=== PATIENT | female | born 1980 | race Asian ===

== ENCOUNTER 2021-04-14 07:48 | Inpatient (IN) | payer BC ==
--- NOTE | 2021-04-14 08:17 | PCM.LDHP ---
L&D History of Present Illness - General Date of Service: 04/14/21 Admit Problem/Dx: Patient Status Order with Admit Dx/Problem 04/14/21 07:56 Patient Status [ADT] Routine Admission Diagnosis/Problem Admission Diagnosis/Problem 04/14/21 08:13 Evelin is a 40 yo at 39+2 weeks gestation (LARISSA(US) 04/19/2021) that presents to L&D today with C/O leaking of clear fluid since 0500 this am and increasing intermittent uterine cramping. Patient d/t arrive tonight at 0001 for IOL re: AMA. Reports adequate movement. Denies meeta vaginal bleeding at this time. A pos, RI, GBS neg. EFW via Leopolds 8+ lbs. Pertinent medical history includes: AMA, heartburn. NKDA. Medications: PNV, omeprazole. Patient has no other complaints or concerns at this time. Source of Information: Patient History Limitations: Reports: No Limitations - History of Present Illness Location, : Reports: Abdomen Quality: Reports: Sharp Severity: Mild Improves with: Reports: None Worsens with: Reports: None Associated Symptoms: Reports: N - Related Data Allergies/Adverse Reactions: Allergies Allergy/AdvReac Type Severity Reaction Status Date / Time No Known Allergies Allergy Verified 04/14/21 07:54 Home Medications: Home Meds Omeprazole Magnesium [Prilosec Otc] 20 mg PO DAILY 04/14/21 [History] Past Medical History Gastrointestinal History: Reports: Hemorrhoids, Other (See Below) (Heartburn/GERD) 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 General: Reports: No Symptoms HEENT: Reports: No Symptoms Pulmonary: Reports: No Symptoms Cardiovascular: Reports: No Symptoms Gastrointestinal: Reports: No Symptoms Genitourinary: Reports: No Symptoms Musculoskeletal: Reports: No Symptoms Skin: Reports: No Symptoms Psychiatric: Reports: No Symptoms Neurological: Reports: No Symptoms Hematologic/Lymphatic: Reports: No Symptoms Immunologic: Reports: No Symptoms L&D Exam - Exam Exam: See Below - Vital Signs Vital Signs: VSS, afebrile. See flowsheet. Weight: 140 lb - OB Specific Fundal Height In cm: 39 Contraction Duration (sec): 60-90 Contraction Frequency (min): 1-3 Contraction Intensity: Mild to Moderate Movement: Active Heart Tones: Present Heart Tones per Min: 145 Heart Rate (FHR) Variability: Moderate (6-25 bpm) Presentation: Vertex (via SVE) - Espinal Score Espinal Score Cervix Position: Midposition Espinal Score Consistency: Soft Espinal Score Effacement: 51-70% Espinal Score Dilation: 1-2 cm Espinal Score 's Station: -2 Espinal Score Total: 7 - Exam General: Alert, Oriented, Cooperative HEENT: Conjunctiva Clear, Hearing Intact, Mucosa Moist & [place]rot[place]es, PERRLA Neck: Supple, Trachea Midline Lungs: Clear to Auscultation, Normal Respiratory Effort Cardiovascular: Regular Rate, Regular Rhythm GI/Abdominal Exam: Normal Bowel Sounds, Soft, Non-Tender, No Organomegaly, No Distention Rectal Exam: Deferred, Hemorrhoids Genitourinary: Normal external exam, Enlarged uterus, Vaginal discharge (Affirm collected) Back Exam: Normal Inspection, Full Range of Motion Extremities: Normal Inspection, Normal Range of Motion, Non-Tender, No Pedal Edema, Normal Capillary Refill Skin: Warm, Dry, Intact Neurological: Cranial Nerves Intact, Reflexes Equal Bilateral Psychiatric: Alert, Normal Affect, Normal Mood - Problem List (1) Amniotic fluid leaking SNOMED Code(s): 386772138 ICD Code: O42.90 - MAGGIE ROM, 7TH0 BETW RUPT & ONST LABR, UNSP WEEKS OF GEST Status: Acute Priority: High Current Visit: Yes (2) 39 weeks gestation of SNOMED Code(s): 27677226 ICD Code: Z3A.39 - 39 WEEKS GESTATION OF Status: Acute Priority: High Current Visit: Yes Problem List Initiated/Reviewed/Updated: Yes Orders Last 24hrs: Active Orders 24 hr Category Date Time Status Patient Status [ADT] Routine ADT 04/14/21 07:56 Active Non Stress Test [RC] PER UNIT ROUTINE Care 04/14/21 07:56 Active Up ad Brittany [RC] ASDIRECTED Care 04/14/21 07:56 Active Vaginal Exam [RC] Click to Edit Care 04/14/21 07:56 Active Vital Signs [RC] PER UNIT ROUTINE Care 04/14/21 07:56 Active AMNISURE RUPTURE MEMBRAN [BF] Routine Lab 04/14/21 07:56 Ordered Resuscitation Status Routine Resus Stat 04/14/21 07:56 Ordered Assessment/Plan Comment:: SROM confirmed via Amnisure. Admit for observation in anticipation of of term viable . FHR 145, reactive NST not yet achieved. Spontaneous contractions noted. Expectant management, reassess cervical dilation ~1100 am. If no change has been make, may augment if needed. May ambulate and hydrotherapy as desired after reactive NST achieved; repeat NST per orders. May receive epidural if desired between 5+ cm. See new orders. Dr. Everett notified and agreeable with POC.
[2021-04-14] MEDS ORDERED: Misoprostol 200 MCG Tab PO PRN (10:06)
[2021-04-14] MEDS ORDERED: Methylergonovine 0.2 MG/1 ML Amp IM PRN (10:06)
[2021-04-14] MEDS ORDERED: Lidocaine 1% 50 ML MDV INJECT PRN (10:06)
[2021-04-14] MEDS ORDERED: Tranexamic Acid 1,000 MG in Sodium Chloride 0.9% 100 ML IV PRN (10:06)
[2021-04-14] MEDS ORDERED: Water For Irrigation,Sterile 1,000 ML Container IRR PRN (10:06)
[2021-04-14] MEDS ORDERED: Nalbuphine 10 MG/1 ML Vial IVPUSH PRN (10:06)
[2021-04-14] MEDS ORDERED: Butorphanol 1 MG/ML SDV IVPUSH PRN (10:06)
[2021-04-14] MEDS ORDERED: Sodium Chloride 0.9% 10 ML Syringe FLUSH PRN (10:06)
[2021-04-14] MEDS ORDERED: Sodium Chloride 0.9% 10 ML SDV IV PRN (10:06)
[2021-04-14] MEDS ORDERED: Sodium Chloride 0.9% 2.5 ML Syringe FLUSH PRN (10:06)
[2021-04-14] MEDS ORDERED: Carboprost Tromethamine 250 MCG/1 ML Amp IM PRN (10:06)
[2021-04-14] MEDS ORDERED: Oxytocin/0.9 % Sodium Chloride 30 UNIT/500 ML BAG IV SCH ×2 (10:15→13:45)
[2021-04-14] MEDS ORDERED: Misoprostol 25 MCG (1/4 of 100 MCG) Tab VAG PRN ×2 (13:36)
[2021-04-14] MEDS ORDERED: Terbutaline 1 MG/ML SDV SUBCUT PRN (13:36)
[2021-04-14] MEDS: Lactated Ringers 1,000 ML IV SCH ×3 (14:07→20:30)
[2021-04-14] MEDS ORDERED: Ropivacaine HCl/PF 200 ML ONE (15:56)
[2021-04-14] MEDS ORDERED: Bupivacaine 0.25% 30 ML SDV ONE (15:57)
[2021-04-14] MEDS ORDERED: Acetaminophen 500 MG Tab PO ONE (19:48)
[2021-04-14] MEDS ORDERED: Ampicillin 2 GM in Sodium Chloride 0.9% 100 ML IV ONE (19:58)
[2021-04-14] MEDS ORDERED: Ampicillin 2 GM Vial ONE (20:03)
[2021-04-14] MEDS ORDERED: Sodium Chloride 0.9% 100 ML ONE (20:03)
[2021-04-14] MEDS ORDERED: Acetaminophen 500 MG Tab PO PRN (21:01)
[2021-04-14] MEDS ORDERED: oxyCODONE 5 MG Tab PO PRN (21:01)
[2021-04-14] MEDS ORDERED: Lanolin 100% Cream 7 GM Tube TOP PRN (21:01)
[2021-04-14] MEDS ORDERED: Ibuprofen 400 MG Tab PO PRN (21:01)
[2021-04-14] MEDS ORDERED: Bisacodyl 10 MG Supp RECTAL PRN (21:01)
[2021-04-14] MEDS ORDERED: Benzocaine/Menthol 20%-0.5% Spray 78 GM Cannister TOP PRN (21:01)
[2021-04-14] MEDS ORDERED: Witch Hazel Medicated Pads 40/Jar TOP PRN (21:01)
--- NOTE | 2021-04-15 07:20 | OR ---
SURGEON: Willis Everett MD DATE OF PROCEDURE: 04/14/2021 Ms. Waters is a 40-year-old patient. She is para 2-0-0-2. She is admitted for elective induction. She was induced with Cytotec and responded to that very well. She had epidural anesthesia for labor analgesia. The patient continued to progress, and then she became complete-complete, and she started pushing. The patient was noted to have a fever at 101 and tachycardia. She was given Tylenol, and she was given 2 g of ampicillin IV antibiotic. I was consulted for possible vacuum extraction. Upon my arrival, the patient's vital signs were stable. Her heart rate was category I. Pelvic examination revealed the patient was complete-complete, vertex, LOT, and 0 to +1 station. After explaining the vacuum extraction and obtaining consent from the patient, the kiwi vacuum extraction was performed, and with the patient pushing and me pulling, with two pulls, I was able to deliver the head of the fetus. Once the head was delivered, we encounter shoulder dystocia for about 1 minute, but with gentle maneuvering and corkscrew maneuvering, I was able to deliver the fetus without any problem. The ear muff assembler was in attendance. The score and the weight were not available at the time of this dictation. The placenta delivered spontaneous, complete, and intact. Estimated blood loss is 300 to 350. heart rate was category I. There was no episiotomy needed. There was no labial or perineal laceration. IMANI / MARQUITA /[id number]
--- NOTE | 2021-04-15 07:57 | PCM.PNPP ---
- General Info Date of Service: 04/15/21 Admission Dx/Problem (Free Text): Patient Status Order with Admit Dx/Problem 04/14/21 07:56 Patient Status [ADT] Routine Admission Diagnosis/Problem Admission Diagnosis/Problem 04/14/21 08:13 Evelin is a 40 yo at 39+2 weeks gestation (LARISSA(US) 04/19/2021) that presents to L&D today with C/O leaking of clear fluid since 0500 this am and increasing intermittent uterine cramping. Patient d/t arrive tonight at 0001 for IOL re: AMA. Reports adequate movement. Denies meeta vaginal bleeding at this time. A pos, RI, GBS neg. EFW via Leopolds 8+ lbs. Pertinent medical history includes: AMA, heartburn. NKDA. Medications: PNV, omeprazole. Patient has no other complaints or concerns at this time. Subjective Update: Ambulating, voiding, and tolerating diet. Some mild lower abdominal pain reported. No additional concerns/questions at this time. Functional Status: Reports: Pain Controlled, Tolerating Diet, Ambulating, Urinating - Review of Systems General: Reports: No Symptoms HEENT: Reports: No Symptoms Pulmonary: Reports: No Symptoms Cardiovascular: Reports: No Symptoms Gastrointestinal: Reports: No Symptoms Genitourinary: Reports: No Symptoms Musculoskeletal: Reports: No Symptoms Skin: Reports: No Symptoms Neurological: Reports: No Symptoms Psychiatric: Reports: No Symptoms - General Info Date of Service: 04/15/21 - Patient Data Vital Signs - Most Recent: Last Vital Signs Temp 98.8 F 04/15/21 05:00 Pulse 94 04/15/21 05:00 Resp 17 04/15/21 05:00 BP 111/60 04/15/21 05:00 Pulse Ox 96 04/15/21 05:00 Weight - Most Recent: 140 lb Lab Results - Last 24 Hours: Laboratory Results - last 24 hr 04/14/21 04/14/21 04/14/21 Range/Units 07:53 09:40 09:40 WBC 11.39 H (4.0-11.0) K/uL RBC 4.19 L (4.30-5.90) M/uL Hgb 12.6 (12.0-16.0) g/dL Hct 37.0 (36.0-46.0) % MCV 88.3 (80.0-98.0) fL MCH 30.1 (27.0-32.0) pg MCHC 34.1 (31.0-37.0) g/dL RDW Std Deviation 42.4 (28.0-62.0) fl RDW Coeff of Messi 13 (11.0-15.0) % Plt Count 169 (150-400) K/uL MPV 11.50 (7.40-12.00) fL Nucleated RBC % 0.0 /100WBC Nucleated RBCs # 0 K/uL Membrane Rupture POSITIVE SARS-CoV-2 RNA (ANGELIKA) (NEGATIVE) Blood Type A POSITIVE Antibody Screen NEGATIVE 04/14/21 04/15/21 Range/Units 09:45 05:00 WBC (4.0-11.0) K/uL RBC (4.30-5.90) M/uL Hgb 11.2 L (12.0-16.0) g/dL Hct 33.1 L (36.0-46.0) % MCV (80.0-98.0) fL MCH (27.0-32.0) pg MCHC (31.0-37.0) g/dL RDW Std Deviation (28.0-62.0) fl RDW Coeff of Messi (11.0-15.0) % Plt Count (150-400) K/uL MPV (7.40-12.00) fL Nucleated RBC % /100WBC Nucleated RBCs # K/uL Membrane Rupture SARS-CoV-2 RNA (ANGELIKA) NEGATIVE (NEGATIVE) Blood Type Antibody Screen Med Orders - Current: Current Medications Acetaminophen (Acetaminophen 500 Mg Tab) 500 mg PO Q4H PRN PRN Reason: Pain (mild 1-3) Acetaminophen (Acetaminophen 500 Mg Tab) 1,000 mg PO Q4H PRN PRN Reason: Pain (mild 1-3) Benzocaine/Menthol (Benzocaine/Menthol 20%-0.5% [place] 78 Gm Cannister) 78 gm TOP ASDIRECTED PRN PRN Reason: Perineal Comfort Measure Bisacodyl (Bisacodyl 10 Mg Supp) 10 mg RECTAL ONETIME PRN PRN Reason: Constipation Butorphanol Tartrate (Butorphanol 1 Mg/Ml Sdv) 1 mg IVPUSH Q1H PRN PRN Reason: Pain (severe 7-10) Carboprost Tromethamine (Carboprost Tromethamine 250 Mcg/1 Ml Amp) 250 mcg IM ASDIRECTED PRN PRN Reason: Post Hemorrhage Docusate Sodium (Docusate Sodium 100 Mg Cap) 100 mg PO Q12H PRN PRN Reason: Constipation Emollient Ointment (Lanolin 100% Cream 7 Gm Tube) 0 gm TOP ASDIRECTED PRN PRN Reason: Sore Nipples Lactated Ringer's (Ringers, Lactated) 1,000 mls @ 150 mls/hr IV ASDIRECTED SANDEEP Last Admin: 04/14/21 20:30 Dose: 999 mls/hr Documented by: Oxytocin/Sodium Chloride (Oxytocin 30 Unit/500 Ml-Ns) 30 unit in 500 mls @ 500 mls/hr IV TITRATE [facility] Last Infusion: 04/14/21 21:09 Dose: 250 mls/hr Documented by: Tranexamic Acid 1,000 mg/ (Sodium Chloride) 110 mls @ 660 mls/hr IV ONETIME PRN PRN Reason: Bleeding Oxytocin/Sodium Chloride (Oxytocin 30 Unit/500 Ml-Ns) 30 unit in 500 mls @ 2 mls/hr IV TITRATE [facility]; Protocol Last Titration: 04/14/21 20:53 Dose: 0 munits/min, 0 mls/hr Documented by: Ibuprofen (Ibuprofen 400 Mg Tab) 400 mg PO Q4H PRN PRN Reason: Pain (mild 1-3) Ibuprofen (Ibuprofen 800 Mg Tab) 800 mg PO Q6H PRN PRN Reason: Pain (mild 1-3) Lidocaine HCl (Lidocaine 1% 50 Ml Mdv) 50 ml INJECT ONETIME PRN PRN Reason: Laceration repair Methylergonovine Maleate (Methylergonovine 0.2 Mg/1 Ml Amp) 0.2 mg IM ASDIRECTED PRN PRN Reason: Post Hemorrhage Misoprostol (Misoprostol 200 Mcg Tab) 200 mcg PO ONETIME PRN PRN Reason: Post Hemorrhage Nalbuphine HCl (Nalbuphine 10 Mg/1 Ml Vial) 10 mg IVPUSH Q1H PRN PRN Reason: Pain (severe 7-10) Oxycodone HCl (Oxycodone 5 Mg Tab) 5 mg PO Q2H PRN PRN Reason: Pain (severe 7-10) Sodium Chloride (Sodium Chloride 0.9% 10 Ml Syringe) 10 ml FLUSH ASDIRECTED PRN PRN Reason: Keep Vein Open Sodium Chloride (Sodium Chloride 0.9% 2.5 Ml Syringe) 2.5 ml FLUSH ASDIRECTED PRN PRN Reason: Keep Vein Open Sodium Chloride (Sodium Chloride 0.9% 10 Ml Sdv) 10 ml IV ASDIRECTED PRN PRN Reason: IV Use Sterile Water (Water For Irrigation,Sterile 1,000 Ml Container) 1,000 ml IRR ASDIRECTED PRN PRN Reason: delivery Terbutaline Sulfate (Terbutaline 1 Mg/Ml Sdv) 0.25 mg SUBCUT ASDIRECTED PRN PRN Reason: Tacysystole Witch Leatha (Witch Leatha Medicated Pads 40/Jar) 1 pad TOP ASDIRECTED PRN PRN Reason: comfort care Discontinued Medications Acetaminophen (Acetaminophen 500 Mg Tab) 1,000 mg PO ONETIME ONE Stop: 04/14/21 19:49 Last Admin: 04/14/21 20:06 Dose: 1,000 mg Documented by: Ampicillin Sodium (Ampicillin 2 Gm Vial) Confirm Administered Dose 2 gm .ROUTE .STK-MED ONE Stop: 04/14/21 20:04 Last Admin: 04/14/21 20:07 Dose: 2 gm Documented by: Bupivacaine HCl (Bupivacaine 0.25% 30 Ml Sdv) Confirm Administered Dose 30 ml .ROUTE .STK-MED ONE Stop: 04/14/21 15:58 Ropivacaine (Naropin 0.2%) Confirm Administered Dose 200 mls @ as directed .ROUTE .STK-MED ONE Stop: 04/14/21 15:57 Ampicillin Sodium 2 gm/ Sodium (Chloride) 100 mls @ 200 mls/hr IV ONETIME ONE Stop: 04/14/21 20:27 Last Admin: 04/14/21 20:10 Dose: Not Given Documented by: Sodium Chloride (Normal Saline) Confirm Administered Dose 100 mls @ as directed .ROUTE .STK-MED ONE Stop: 04/14/21 20:04 Last Admin: 04/14/21 20:08 Dose: 200 mls/hr Documented by: - Infant Interaction Disposition, : [place] to Nursery Support Person: - Recovery Exam Fundal Tone: Firm Fundal Level: 2 Fingerbreadths Below Umbilicus Fundal Placement: Midline Lochia Amount: Scant Lochia Color: Rubra/Red Perineum Description: Edematous Episiotomy/Laceration: None - Exam General: Alert, Oriented, Cooperative, No Acute Distress Lungs: Normal Respiratory Effort Cardiovascular: Regular Rate, Regular Rhythm GI/Abdominal Exam: Soft, Non-Tender Extremities: Normal Inspection, Normal Range of Motion, Non-Tender, Normal Capillary Refill Skin: Warm, Dry, Intact Neurological: No New Focal Deficit, Normal Speech, Normal Tone, Sensation Intact Psy/Mental Status: Alert, Normal Affect, Normal Mood - Problem List & Annotations (1) Vacuum-assisted vaginal delivery SNOMED Code(s): 82809794436995451 Code(s): Z37.9 - OUTCOME OF DELIVERY, UNSPECIFIED Status: Acute Priority: High Current Visit: Yes - Problem List Review Problem List Initiated/Reviewed/Updated: Yes - Plan Plan:: SROM confirmed via Amnisure. Admit for observation in anticipation of of term viable . FHR 145, reactive NST not yet achieved. Spontaneous contractions noted. Expectant management, reassess cervical dilation ~1100 am. If no change has been make, may augment if needed. May ambulate and hydrotherapy as desired after reactive NST achieved; repeat NST per orders. May receive epidural if desired between 5+ cm. See new orders. Dr. Everett notified and agreeable with POC. PP Day1 A: Ambulating, voiding, and tolerating diet. Some mild lower abdominal pain reported. Otherwise unremarkable. P: Routine plan of care; Dr. Everett updated.
[2021-04-15] MEDS: Ibuprofen 800 MG Tab PO PRN ×3 (08:18→21:48)
[2021-04-15] MEDS: Acetaminophen 500 MG Tab PO PRN ×2 (11:32→21:51)
[2021-04-15] MEDS: Docusate Sodium 100 MG Cap PO PRN (21:48)
[2021-04-16] MEDS: Acetaminophen 500 MG Tab PO PRN (05:57)
[2021-04-16] MEDS: Ibuprofen 800 MG Tab PO PRN ×2 (05:58→20:40)
--- NOTE | 2021-04-16 09:51 | PCM.PNPP ---
- General Info Date of Service: 04/16/21 Functional Status: Reports: Pain Controlled - Review of Systems General: Reports: No Symptoms HEENT: Reports: No Symptoms Pulmonary: Reports: No Symptoms Cardiovascular: Reports: No Symptoms Gastrointestinal: Reports: No Symptoms Genitourinary: Reports: No Symptoms Musculoskeletal: Reports: No Symptoms Skin: Reports: No Symptoms Neurological: Reports: No Symptoms Psychiatric: Reports: No Symptoms - General Info Date of Service: 04/16/21 - Patient Data Vital Signs - Most Recent: Last Vital Signs Temp 36.4 C 04/16/21 08:00 Pulse 67 04/16/21 08:00 Resp 18 04/16/21 08:00 BP 102/64 04/16/21 08:00 Pulse Ox 96 04/16/21 08:00 Weight - Most Recent: 63.503 kg Med Orders - Current: Current Medications Acetaminophen (Acetaminophen 500 Mg Tab) 500 mg PO Q4H PRN PRN Reason: Pain (mild 1-3) Acetaminophen (Acetaminophen 500 Mg Tab) 1,000 mg PO Q4H PRN PRN Reason: Pain (mild 1-3) Last Admin: 04/16/21 05:57 Dose: 1,000 mg Documented by: Benzocaine/Menthol (Benzocaine/Menthol 20%-0.5% [place] 78 Gm Cannister) 78 gm TOP ASDIRECTED PRN PRN Reason: Perineal Comfort Measure Bisacodyl (Bisacodyl 10 Mg Supp) 10 mg RECTAL ONETIME PRN PRN Reason: Constipation Butorphanol Tartrate (Butorphanol 1 Mg/Ml Sdv) 1 mg IVPUSH Q1H PRN PRN Reason: Pain (severe 7-10) Carboprost Tromethamine (Carboprost Tromethamine 250 Mcg/1 Ml Amp) 250 mcg IM ASDIRECTED PRN PRN Reason: Post Hemorrhage Docusate Sodium (Docusate Sodium 100 Mg Cap) 100 mg PO Q12H PRN PRN Reason: Constipation Last Admin: 04/15/21 21:48 Dose: 100 mg Documented by: Emollient Ointment (Lanolin 100% Cream 7 Gm Tube) 0 gm TOP ASDIRECTED PRN PRN Reason: Sore Nipples Lactated Ringer's (Ringers, Lactated) 1,000 mls @ 150 mls/hr IV ASDIRECTED SANDEEP Last Admin: 04/14/21 20:30 Dose: 999 mls/hr Documented by: Oxytocin/Sodium Chloride (Oxytocin 30 Unit/500 Ml-Ns) 30 unit in 500 mls @ 500 mls/hr IV TITRATE SANDEEP Last Infusion: 04/14/21 21:09 Dose: 250 mls/hr Documented by: Tranexamic Acid 1,000 mg/ (Sodium Chloride) 110 mls @ 660 mls/hr IV ONETIME PRN PRN Reason: Bleeding Oxytocin/Sodium Chloride (Oxytocin 30 Unit/500 Ml-Ns) 30 unit in 500 mls @ 2 mls/hr IV TITRATE SANDEEP; Protocol Last Titration: 04/14/21 20:53 Dose: 0 munits/min, 0 mls/hr Documented by: Ibuprofen (Ibuprofen 400 Mg Tab) 400 mg PO Q4H PRN PRN Reason: Pain (mild 1-3) Ibuprofen (Ibuprofen 800 Mg Tab) 800 mg PO Q6H PRN PRN Reason: Pain (mild 1-3) Last Admin: 04/16/21 05:58 Dose: 800 mg Documented by: Lidocaine HCl (Lidocaine 1% 50 Ml Mdv) 50 ml INJECT ONETIME PRN PRN Reason: Laceration repair Methylergonovine Maleate (Methylergonovine 0.2 Mg/1 Ml Amp) 0.2 mg IM ASDIRECTED PRN PRN Reason: Post Hemorrhage Misoprostol (Misoprostol 200 Mcg Tab) 200 mcg PO ONETIME PRN PRN Reason: Post Hemorrhage Nalbuphine HCl (Nalbuphine 10 Mg/1 Ml Vial) 10 mg IVPUSH Q1H PRN PRN Reason: Pain (severe 7-10) Oxycodone HCl (Oxycodone 5 Mg Tab) 5 mg PO Q2H PRN PRN Reason: Pain (severe 7-10) Sodium Chloride (Sodium Chloride 0.9% 10 Ml Syringe) 10 ml FLUSH ASDIRECTED PRN PRN Reason: Keep Vein Open Sodium Chloride (Sodium Chloride 0.9% 2.5 Ml Syringe) 2.5 ml FLUSH ASDIRECTED PRN PRN Reason: Keep Vein Open Sodium Chloride (Sodium Chloride 0.9% 10 Ml Sdv) 10 ml IV ASDIRECTED PRN PRN Reason: IV Use Sterile Water (Water For Irrigation,Sterile 1,000 Ml Container) 1,000 ml IRR ASDIRECTED PRN PRN Reason: delivery Terbutaline Sulfate (Terbutaline 1 Mg/Ml Sdv) 0.25 mg SUBCUT ASDIRECTED PRN PRN Reason: Tacysystole Witch Leatha (Witch Leatha Medicated Pads 40/Jar) 1 pad TOP ASDIRECTED PRN PRN Reason: comfort care Discontinued Medications Acetaminophen (Acetaminophen 500 Mg Tab) 1,000 mg PO ONETIME ONE Stop: 04/14/21 19:49 Last Admin: 04/14/21 20:06 Dose: 1,000 mg Documented by: Ampicillin Sodium (Ampicillin 2 Gm Vial) Confirm Administered Dose 2 gm .ROUTE .STK-MED ONE Stop: 04/14/21 20:04 Last Admin: 04/14/21 20:07 Dose: 2 gm Documented by: Bupivacaine HCl (Bupivacaine 0.25% 30 Ml Sdv) Confirm Administered Dose 30 ml .ROUTE .STK-MED ONE Stop: 04/14/21 15:58 Ropivacaine (Naropin 0.2%) Confirm Administered Dose 200 mls @ as directed .ROUTE .STK-MED ONE Stop: 04/14/21 15:57 Ampicillin Sodium 2 gm/ Sodium (Chloride) 100 mls @ 200 mls/hr IV ONETIME ONE Stop: 04/14/21 20:27 Last Admin: 04/14/21 20:10 Dose: Not Given Documented by: Sodium Chloride (Normal Saline) Confirm Administered Dose 100 mls @ as directed .ROUTE .STK-MED ONE Stop: 04/14/21 20:04 Last Admin: 04/14/21 20:08 Dose: 200 mls/hr Documented by: - Interaction Infant Disposition, : [place] in Room with Family Infant Interaction: Holding Infant Feeding: Attempted ; Nursed Fair/Poor Support Person: - Recovery Exam Fundal Tone: Firm Fundal Level: 1 Fingerbreadths Below Umbilicus Fundal Placement: Midline Lochia Amount: Small Lochia Color: Rubra/Red Perineum Description: Intact, Minimal Bruising/Swelling Episiotomy/Laceration: None Bladder Status: Voiding Urinary Elimination: Voided - Exam General: Alert, Oriented HEENT: Pupils Equal Neck: Supple Lungs: Clear to Auscultation, Normal Respiratory Effort Cardiovascular: Regular Rate, Regular Rhythm GI/Abdominal Exam: Normal Bowel Sounds, Soft, Non-Tender, No Organomegaly, No Distention, No Abnormal Bruit, No Mass, Pelvis Stable Extremities: Normal Inspection, Normal Range of Motion, Non-Tender, No Pedal Edema, Normal Capillary Refill Skin: Warm, Dry, Intact Wound/Incisions: Healing Well Neurological: No New Focal Deficit Psy/Mental Status: Alert, Normal Affect, Normal Mood - Problem List Review Problem List Initiated/Reviewed/Updated: Yes - Assessment Assessment:: Status post normal spontaneous vaginal delivery she is doing well she will be sent home today regular care - Plan Plan:: SROM confirmed via Amnisure. Admit for observation in anticipation of of term viable . FHR 145, reactive NST not yet achieved. Spontaneous contractions noted. Expectant management, reassess cervical dilation ~1100 am. If no change has been make, may augment if needed. May ambulate and hydrotherapy as desired after reactive NST achieved; repeat NST per orders. May receive epidural if desired between 5+ cm. See new orders. Dr. Everett notified and agreeable with POC. PP Day1 A: Ambulating, voiding, and tolerating diet. Some mild lower abdominal pain reported. Otherwise unremarkable. P: Routine plan of care; Dr. Everett updated.
--- NOTE | 2021-04-16 09:54 | PCM.DCSUM1 ---
Discharge Summary - Hospital Course Diagnosis: Stroke: No - Discharge Data Discharge Date: 04/16/21 Discharge Disposition: Home, Self-Care 01 Condition: Good - Referral to Home Health Primary Care Physician: PCP None - Patient Instructions Diet: Usual Diet as Tolerated Activity: Non Weight Bearing Driving: Do Not Drive Showering/Bathing: May Shower - Discharge Plan Home Medications: Home Meds Omeprazole Magnesium [Prilosec Otc] 20 mg PO DAILY 04/14/21 [History] Referrals: Lissette Bustos PA [Ordering Only Provider] - 05/14/21 2:15 pm (4-week check. Masks are required.) - Discharge Summary/Plan Comment DC Time >30 min.: Yes Total # of Minutes for Discharge Time: 30 - General Info Date of Service: 04/16/21 Functional Status: Reports: Pain Controlled - Review of Systems General: Reports: No Symptoms HEENT: Reports: No Symptoms Pulmonary: Reports: No Symptoms Cardiovascular: Reports: No Symptoms Gastrointestinal: Reports: No Symptoms Genitourinary: Reports: No Symptoms Musculoskeletal: Reports: No Symptoms Skin: Reports: No Symptoms Neurological: Reports: No Symptoms Psychiatric: Reports: No Symptoms - Patient Data Vitals - Most Recent: Last Vital Signs Temp 36.4 C 04/16/21 08:00 Pulse 67 04/16/21 08:00 Resp 18 04/16/21 08:00 BP 102/64 04/16/21 08:00 Pulse Ox 96 04/16/21 08:00 Weight - Most Recent: 63.503 kg Med Orders - Current: Current Medications Acetaminophen (Acetaminophen 500 Mg Tab) 500 mg PO Q4H PRN PRN Reason: Pain (mild 1-3) Acetaminophen (Acetaminophen 500 Mg Tab) 1,000 mg PO Q4H PRN PRN Reason: Pain (mild 1-3) Last Admin: 04/16/21 05:57 Dose: 1,000 mg Documented by: Benzocaine/Menthol (Benzocaine/Menthol 20%-0.5% [place] 78 Gm Cannister) 78 gm TOP ASDIRECTED PRN PRN Reason: Perineal Comfort Measure Bisacodyl (Bisacodyl 10 Mg Supp) 10 mg RECTAL ONETIME PRN PRN Reason: Constipation Butorphanol Tartrate (Butorphanol 1 Mg/Ml Sdv) 1 mg IVPUSH Q1H PRN PRN Reason: Pain (severe 7-10) Carboprost Tromethamine (Carboprost Tromethamine 250 Mcg/1 Ml Amp) 250 mcg IM ASDIRECTED PRN PRN Reason: Post Hemorrhage Docusate Sodium (Docusate Sodium 100 Mg Cap) 100 mg PO Q12H PRN PRN Reason: Constipation Last Admin: 04/15/21 21:48 Dose: 100 mg Documented by: Emollient Ointment (Lanolin 100% Cream 7 Gm Tube) 0 gm TOP ASDIRECTED PRN PRN Reason: Sore Nipples Lactated Ringer's (Ringers, Lactated) 1,000 mls @ 150 mls/hr IV ASDIRECTED SANDEEP Last Admin: 04/14/21 20:30 Dose: 999 mls/hr Documented by: Oxytocin/Sodium Chloride (Oxytocin 30 Unit/500 Ml-Ns) 30 unit in 500 mls @ 500 mls/hr IV TITRATE SANDEEP Last Infusion: 04/14/21 21:09 Dose: 250 mls/hr Documented by: Tranexamic Acid 1,000 mg/ (Sodium Chloride) 110 mls @ 660 mls/hr IV ONETIME PRN PRN Reason: Bleeding Oxytocin/Sodium Chloride (Oxytocin 30 Unit/500 Ml-Ns) 30 unit in 500 mls @ 2 mls/hr IV TITRATE [facility]; Protocol Last Titration: 04/14/21 20:53 Dose: 0 munits/min, 0 mls/hr Documented by: Ibuprofen (Ibuprofen 400 Mg Tab) 400 mg PO Q4H PRN PRN Reason: Pain (mild 1-3) Ibuprofen (Ibuprofen 800 Mg Tab) 800 mg PO Q6H PRN PRN Reason: Pain (mild 1-3) Last Admin: 04/16/21 05:58 Dose: 800 mg Documented by: Lidocaine HCl (Lidocaine 1% 50 Ml Mdv) 50 ml INJECT ONETIME PRN PRN Reason: Laceration repair Methylergonovine Maleate (Methylergonovine 0.2 Mg/1 Ml Amp) 0.2 mg IM ASDIRECTED PRN PRN Reason: Post Hemorrhage Misoprostol (Misoprostol 200 Mcg Tab) 200 mcg PO ONETIME PRN PRN Reason: Post Hemorrhage Nalbuphine HCl (Nalbuphine 10 Mg/1 Ml Vial) 10 mg IVPUSH Q1H PRN PRN Reason: Pain (severe 7-10) Oxycodone HCl (Oxycodone 5 Mg Tab) 5 mg PO Q2H PRN PRN Reason: Pain (severe 7-10) Sodium Chloride (Sodium Chloride 0.9% 10 Ml Syringe) 10 ml FLUSH ASDIRECTED PRN PRN Reason: Keep Vein Open Sodium Chloride (Sodium Chloride 0.9% 2.5 Ml Syringe) 2.5 ml FLUSH ASDIRECTED PRN PRN Reason: Keep Vein Open Sodium Chloride (Sodium Chloride 0.9% 10 Ml Sdv) 10 ml IV ASDIRECTED PRN PRN Reason: IV Use Sterile Water (Water For Irrigation,Sterile 1,000 Ml Container) 1,000 ml IRR ASDIRECTED PRN PRN Reason: delivery Terbutaline Sulfate (Terbutaline 1 Mg/Ml Sdv) 0.25 mg SUBCUT ASDIRECTED PRN PRN Reason: Tacysystole Witch [place] (Witch [place] Medicated Pads 40/Jar) 1 pad TOP ASDIRECTED PRN PRN Reason: comfort care Discontinued Medications Acetaminophen (Acetaminophen 500 Mg Tab) 1,000 mg PO ONETIME ONE Stop: 04/14/21 19:49 Last Admin: 04/14/21 20:06 Dose: 1,000 mg Documented by: Ampicillin Sodium (Ampicillin 2 Gm Vial) Confirm Administered Dose 2 gm .ROUTE .STK-MED ONE Stop: 04/14/21 20:04 Last Admin: 04/14/21 20:07 Dose: 2 gm Documented by: Bupivacaine HCl (Bupivacaine 0.25% 30 Ml Sdv) Confirm Administered Dose 30 ml .ROUTE .STK-MED ONE Stop: 04/14/21 15:58 Ropivacaine (Naropin 0.2%) Confirm Administered Dose 200 mls @ as directed .ROUTE .STK-MED ONE Stop: 04/14/21 15:57 Ampicillin Sodium 2 gm/ Sodium (Chloride) 100 mls @ 200 mls/hr IV ONETIME ONE Stop: 04/14/21 20:27 Last Admin: 04/14/21 20:10 Dose: Not Given Documented by: Sodium Chloride (Normal Saline) Confirm Administered Dose 100 mls @ as directed .ROUTE .STK-MED ONE Stop: 04/14/21 20:04 Last Admin: 04/14/21 20:08 Dose: 200 mls/hr Documented by: - Exam General: Reports: Alert, Oriented HEENT: Reports: Pupils Equal, Pupils Reactive, EOMI, Mucous Membr. Moist/Debary Neck: Reports: Supple Lungs: Reports: Clear to Auscultation, Normal Respiratory Effort Cardiovascular: Reports: Regular Rate, Regular Rhythm GI/Abdominal Exam: Normal Bowel Sounds, Soft, Non-Tender, No Organomegaly, No Distention, No Abnormal Bruit, No Mass, Pelvis Stable (Female) Exam: Normal External Exam, Normal Speculum Exam, Normal Bimanual Exam Rectal (Female) Exam: Normal Exam, Normal Rectal Tone Back Exam: Reports: Normal Inspection, Full Range of Motion Extremities: Normal Inspection, Normal Range of Motion, Non-Tender, No Pedal Edema, Normal Capillary Refill Skin: Reports: Warm, Dry, Intact Wound/Incisions: Reports: Healing Well Neurological: Reports: No New Focal Deficit Psy/Mental Status: Reports: Alert, Normal Affect, Normal Mood
[2021-04-16] MEDS: Docusate Sodium 100 MG Cap PO PRN (20:40)
== END 2021-04-16 23:10 | disposition home or self-care (01) | DRG 560 ==
LOC: MW.OBCHECK 07:48 → MW.OB 07:49 → MW.OBCHECK 10:06 → MW.OB 10:06 → OBSVTOIN 20:51 → MW.OB 04-15 01:00
PROVIDERS: ADMIT Obstetrics & Gynecology; ATTEND Obstetrics & Gynecology
PROC: 10D07Z6 Extraction of Products of Conception, Vacuum, Via Natural or Artificial Opening (ICD-10-PCS; principal; 2021-04-14)
PROC: 3E0P7VZ Introduction of Hormone into Female Reproductive, Via Natural or Artificial Opening (ICD-10-PCS; 2021-04-14)
DX: O76 Abnormality in fetal heart rate and rhythm complicating labor and delivery (principal); Z3A.39 39 weeks gestation of pregnancy; Z37.0 Single live birth; O66.0 Obstructed labor due to shoulder dystocia; Z20.822 Contact with and (suspected) exposure to COVID-19
CPT/HCPCS: 36415; 59025; 59409; 84112; 85014; 85018; 85027; 86592; 86850; 86900; 86901; A9270-GY; J0290; J2590; J2795; J3490; J7120; U0002